=== PATIENT | male | born 1995 | race African-American/Black ===

== ENCOUNTER 2017-01-14 09:09 | Emergency (ER) | payer SELFPAY ==
[~2017-01-14] VITALS: Ht 187.9 cm; Wt 74.8 kg
[2017-01-14 09:16] VITALS: BP 153/76
== END 2017-01-14 11:10 | disposition home or self-care (01) ==
LOC: ED 09:09
DX: I86.1 Scrotal varices (principal); R03.0 Elevated blood-pressure reading, without diagnosis of hypertension